=== PATIENT | male | born 1975 | race African-American/Black ===

== ENCOUNTER 2020-08-21 07:25 | Outpatient (CLI) | payer MEDICARE, MEDICAID | END 2020-08-21 07:26 | disposition home or self-care (01) | LOC: BICCT 07:25 | PROVIDERS: ATTEND Physician Assistant | DX: R31.9 Hematuria, unspecified (principal); M54.5 Low back pain; K76.9 Liver disease, unspecified; N28.9 Disorder of kidney and ureter, unspecified; J98.4 Other disorders of lung | CPT/HCPCS: 74178 ==

== ENCOUNTER 2022-06-04 08:57 | Emergency (ER) | payer MEDICARE, MEDICAID ==
[2022-06-04 12:31] LABS: SARS-CoV-2 NAA Rapid Test Not Detected (NotDetected)
== END 2022-06-04 12:42 | disposition home or self-care (01) ==
LOC: ERS 08:57
DX: J31.0 Chronic rhinitis (principal); J32.9 Chronic sinusitis, unspecified; Z20.822 Contact with and (suspected) exposure to COVID-19
CPT/HCPCS: 0240U; 87081; 87430; 99283

== ENCOUNTER 2022-11-04 07:31 | Emergency (ER) | payer MEDICARE, MEDICAID ==
[2022-11-04] MEDS ORDERED: Metoclopramide HCl 10 MG/2 ML VIAL ONE (08:37)
[2022-11-04] MEDS ORDERED: Ketorolac Tromethamine 30 MG/ML VIAL ONE (08:37)
[2022-11-04] MEDS ORDERED: diphenhydrAMINE 50 MG/ML VIAL ONE (08:37)
[2022-11-04] MEDS ORDERED: methylPREDNISolone Sod Succ/PF 125 MG/2 ML VIAL ONE (08:37)
[2022-11-04 08:53] LABS: #Monocytes 0.6 thou/uL (0.11-0.59); #Neutrophils 2.8 thou/uL (1.40-6.50); %Basophils 0.5 % (0.0-1.0); %Eosinophils 0.9 % (0.0-10.0); %Lymphocytes 20.2 % (21.0-51.0); %Monocytes 14.1 % (0.0-10.0); %Neutrophils 64.1 % (42.0-75.0); Hemoglobin 10.3 g/dL (14.0-18.0); Mean Corpuscular HGB CONC 31.5 g/dL (32.0-36.0); Mean Corpuscular Hemoglobin 28.4 pg (27.0-31.0); Mean Corpuscular Volume 90.1 fl (78.0-98.0); Red Blood Cell (RBC) Count 3.63 mill/uL (4.70-6.10); White Blood Cell (WBC) Count 4.4 10x3/uL (4.8-10.8)
[2022-11-04 08:54] LABS: Platelet Count 82 10x3/uL (130-400)
[2022-11-04 09:15] LABS: Anion Gap 11 mmol/L (10-20); BUN (Urea Nitrogen) 11 mg/dL (8.9-20.6); Bilirubin, Total 0.3 mg/dL (0.2-1.2); Calc. Creatinine Clearance 0 mL/min (70-130); Calcium 8.9 mg/dL (7.8-10.44); Carbon Dioxide 26 mmol/L (22-29); Chloride 105 mmol/L (98-107); Estimated GFR 84; Glucose 99 mg/dL (70-105); Potassium 3.6 mmol/L (3.5-5.1); Sodium 138 mmol/L (136-145)
[2022-11-04 09:16] LABS: ALT (SGPT) 11 U/L (8-55); AST (SGOT) 12 U/L (5-34); Albumin 3.8 g/dL (3.5-5.0); Alkaline Phosphatase 84 U/L (40-110); Globulin 2.9 g/dL (2.4-3.5); Protein, Total 6.7 g/dL (6.0-8.3)
== END 2022-11-04 10:05 | disposition home or self-care (01) ==
LOC: ERS 07:31
DX: R51.9 Headache, unspecified (principal); D72.829 Elevated white blood cell count, unspecified
CPT/HCPCS: 70450; 80053; 85025; 96365; 96375; J1200; J1885; J2765; J2930